=== PATIENT | male | born 1980 | race Caucasian/White ===

== ENCOUNTER 2021-07-29 00:40 | Emergency (ER) | payer MEDICAID, OTHER ==
[~2021-07-29] VITALS: Ht 162.6 cm; Wt 136.1 kg
[2021-07-29 06:31] VITALS: BP 134/80
== END 2021-07-29 06:54 | disposition left against medical advice (07) ==
LOC: ER 00:40
DX: R21 Rash and other nonspecific skin eruption (principal); Z88.8 Allergy status to other drugs, medicaments and biological substances